=== PATIENT | female | born 1945 | race Caucasian/White ===

== ENCOUNTER 2016-07-15 08:39 | Day surgery (SDC) | payer MEDICARE, BC ==
[2005-01-06 18:56] VITALS: BP 150/89
[~2016-07-15] VITALS: Ht 162.7 cm; Wt 72.7 kg
[2016-07-15] VITALS (9 sets, daily range): BP systolic 121–162; BP diastolic 57–75; PULSE 47–58; TEMP 97.9
[~2016-07-15 08:39] MED LIST: ASPI325T6 PO; ASPIRIN 32325 MG/TAB PO; CARDI-OMEGA1000 MG PO; EPA1000 MG PO; FISH OIL 1000MG1 CAP PO; LEVAQUIN 5500 MG/TA1 PO; NEURONTIN600 MG/TAB PO; NORCO 325 MG-51 TAB PO; NORVASC 5MG5 MG/TAB PO; PHENERGAN W/CO120 M1 PO; PLAVIX 75MG TAB75 MG PO; PRAVACHOL80 MG PO; PRED FORTE 1 ML1 ML OU; PREDNISONE10 MG PO; PREDNISONE20 MG PO; PRILOSEC 20MG20 MG PO; REGLAN 10MG10 MG/TAB PO; VITAMIN D 1001000 IU PO; XANAX 1MG1 MG PO; ZEBETA 5MG5 MG PO; ZESTRIL30 MG PO; ZITHROMAX 250M250 MG PO
[2016-07-15 09:18] LABS: HEMATOCRIT 42.6 % (37.0-47.0); HEMOGLOBIN 13.9 g/dl (12.5-16.0); MEAN CELL VOLUME 93 fl (80.0-100.0); MEAN CORPUSCULAR HEMOGLOBIN 30 pg (27.0-31.0); MEAN CORPUSCULAR HGB CONC 33 g/dl (33.0-37.0); MEAN PLATELET VOLUME 9.3 fl (7.4-10.4); PLATELET COUNT 207 K/mm3 (130-400); RED BLOOD COUNT 4.57 M/mm3 (4.10-5.30); REDCELL DISTRIBUTION WIDTH-CV 13.4 % (11.5-14.5); WHITE BLOOD COUNT 3.8 K/mm3 (4.8-10.8)
[2016-07-15 09:30] LABS: CALCIUM 9.1 mg/dL (8.4-10.2); CREATININE, serum 0.85 mg/dL (0.52-1.25); POTASSIUM 4.3 mmol/L (3.4-5.0)
[2016-07-15 09:33] LABS: INR 1.1 (0.8-3.0); PROTHROMBIN TIME 11.7 SECONDS (9.7-12.8)
[2016-07-15] MEDS ORDERED: ZESTRIL30 MG PO (09:34)
[2016-07-15] MEDS ORDERED: PLAVIX 75MG TAB75 MG PO (09:34)
[2016-07-15] MEDS ORDERED: RANEXA 500MG T500 MG PO (15:18)
[2016-07-15] MEDS ORDERED: IMDUR 30MG30 MG/TAB PO (15:18)
[2016-07-15] MEDS ORDERED: ASPIRIN 81M81 MG/TA2 PO (15:19)
[2016-07-15] MEDS ORDERED: COZAAR100 MG PO (15:19)
[2016-07-15] MEDS ORDERED: PEPCID40 MG PO (15:20)
== END 2016-07-15 16:02 | disposition home or self-care (01) ==
LOC: COL.RAD 08:39
PROVIDERS: Internal Medicine Cardiovascular Disease
DX: I25.119 Atherosclerotic heart disease of native coronary artery with unspecified angina pectoris (principal); I10 Essential (primary) hypertension; E78.5 Hyperlipidemia, unspecified; G62.9 Polyneuropathy, unspecified; Z95.5 Presence of coronary angioplasty implant and graft
CPT/HCPCS: C1769; C1887; C1894; J1644; J2250; J3010; Q9967

== ENCOUNTER → 2017-07-21 | Outpatient (CLI) | payer MEDICARE, BC ==
[~2017-07-21] MED LIST changes: +ASPIRIN 81M81 MG/TA2 PO; +COZAAR100 MG PO; +IMDUR 30MG30 MG/TAB PO; +PEPCID40 MG PO; +RANEXA 500MG T500 MG PO
== END ==
LOC: COL.RAD 13:10
DX: M16.11 Unilateral primary osteoarthritis, right hip (principal)
CPT/HCPCS: J3301; Q9967

== ENCOUNTER → 2017-10-26 | Outpatient (CLI) | payer MEDICARE, BC ==
[2017-10-26 15:09] LABS: HIV 1/2 Antibodies Non-Reactive; HIV-1p24 Antigen Non-Reactive
== END ==
LOC: COL.LAB 13:58
PROVIDERS: Orthopaedic Surgery
DX: Z01.812 Encounter for preprocedural laboratory examination (principal); M16.11 Unilateral primary osteoarthritis, right hip

== ENCOUNTER → 2018-05-21 | Outpatient (CLI) | payer MEDICARE, BC | LOC: COL.RAD 07:51 | DX: J18.9 Pneumonia, unspecified organism (principal); K21.9 Gastro-esophageal reflux disease without esophagitis; K44.9 Diaphragmatic hernia without obstruction or gangrene | CPT/HCPCS: A9541 ==

== ENCOUNTER → 2019-01-21 | Outpatient (CLI) | payer MEDICARE, BC | LOC: COL.VAS 01-18 10:30 | DX: M79.89 Other specified soft tissue disorders (principal) ==

== ENCOUNTER → 2019-05-20 | Outpatient (CLI) | payer MEDICARE, BC | LOC: COL.RAD 10:30 | DX: M25.511 Pain in right shoulder (principal) | CPT/HCPCS: J3301; Q9967 ==

== ENCOUNTER → 2020-02-21 | Outpatient (CLI) | payer MEDICARE, BC | LOC: COL.RAD 10:02 | DX: M25.511 Pain in right shoulder (principal) | CPT/HCPCS: J3301; Q9967 ==

== ENCOUNTER 2020-05-28 09:44 | Day surgery (SDC) | payer MEDICARE, BC ==
[2005-01-06 18:56] VITALS: BP 150/89
[~2020-05-28] VITALS: Ht 162.6 cm; Wt 75.8 kg
[2020-05-28] VITALS (14 sets, daily range): BP systolic 92–188; BP diastolic 58–83; PULSE 55–65; TEMP 98.9
[~2020-05-28 09:44] MED LIST changes: -ASPIRIN 81M81 MG/TA2 PO; -CARDI-OMEGA1000 MG PO; +EPA FISH OIL1 SGL PO
[2020-05-28 10:35] LABS: HEMATOCRIT 45.8 % (37.0-47.0); HEMOGLOBIN 14.8 g/dl (12.5-16.0); MEAN CELL VOLUME 95 fl (80.0-100.0); MEAN CORPUSCULAR HEMOGLOBIN 31 pg (27.0-31.0); MEAN CORPUSCULAR HGB CONC 32 g/dl (33.0-37.0); MEAN PLATELET VOLUME 8.8 fl (7.4-10.4); PLATELET COUNT 238 K/mm3 (130-400)
[2020-05-28 10:40] LABS: PROTHROMBIN TIME 11.7 SECONDS (9.7-12.8)
[2020-05-28 10:43] LABS: PARTIAL THROMBOPLASTIN TIME 33.5 SECONDS (26.0-37.0)
[2020-05-28 10:47] LABS: CALCIUM 9.6 mg/dL (8.4-10.2); CREATININE, serum 0.84 (0.52-1.25); POTASSIUM 4.7 mmol/L (3.4-5.0)
--- NOTE | 2020-05-28 11:26 | NUR ---
SEE MERGE DOCUMENTATION FOR MEDICATION ADMINISTRATION TIMES AND INTRA/POST PROCEDURE SEDATION ASSESSMENTS. RIGHT HAND BARBEAU TEST POSITIVE.
[2020-05-28] MEDS ORDERED: ALDACTONE 25MG25 M1 PO (11:29)
[2020-05-28] MEDS ORDERED: CELEXA40 MG PO (11:30)
[2020-05-28] MEDS ORDERED: NITROSTAT0.4 MG/TAB SL (11:33)
[2020-05-28] MEDS ORDERED: XALATAN EYE DROPS OD (11:34)
[2020-05-28] MEDS ORDERED: GARLIC100 MG PO (11:35)
[2020-05-28] MEDS ORDERED: PHARMASSURE ZIN50 MG PO (11:35)
[2020-05-28] MEDS ORDERED: NATURAL E400 IU PO (11:36)
[2020-05-28] MEDS ORDERED: GLUCOSAMINE & C1 TAB PO (11:37)
[2020-05-28] MEDS ORDERED: PROBIOTIC ACID1 EAC3 PO (11:37)
--- NOTE | 2020-05-28 12:30 | NUR ---
pt is back to [facility] [employer]. bs report received from Elliott BARBA. pt is awake and alert, no distress at all. sinus michelle on monitor, rate 57, pt is pwd, resp reg andunlabored. TR band to rt wrist, cms intact distal. wctm. lunch ordered. call light in reach.
[2020-05-28] MEDS ORDERED: GNC L-ARGININE500 MG PO (12:58)
--- NOTE | 2020-05-28 16:30 | NUR ---
Discharge instructions given to pt.pt verbalizes understanding.INT removed,catheter tip itnact.Pt escorted out via wheelchair by this nurse.
== END 2020-05-28 17:44 | disposition home or self-care (01) ==
LOC: COL.CAR 09:44
PROVIDERS: Internal Medicine Cardiovascular Disease
DX: I25.110 Atherosclerotic heart disease of native coronary artery with unstable angina pectoris (principal); I48.0 Paroxysmal atrial fibrillation; R94.39 Abnormal result of other cardiovascular function study; I10 Essential (primary) hypertension; E78.5 Hyperlipidemia, unspecified; G47.33 Obstructive sleep apnea (adult) (pediatric); Z88.2 Allergy status to sulfonamides
CPT/HCPCS: J1644; J2250; J3010; Q9967

== ENCOUNTER 2022-04-12 09:56 | Day surgery (SDC) | payer MEDICARE, BC ==
[2022-04-12] VITALS (10 sets, daily range): BP systolic 120–169; BP diastolic 57–85; PULSE 58–90; TEMP 98
[~2022-04-12] VITALS: Ht 162.6 cm; Wt 70.4 kg
[~2022-04-12 09:56] MED LIST changes: +ALDACTONE 25MG25 M1 PO; +CELEXA40 MG PO; +GARLIC100 MG PO; +GLUCOSAMINE & C1 TAB PO; +GNC L-ARGININE500 MG PO; +NATURAL E400 IU PO; +NITROSTAT0.4 MG/TAB SL; +PHARMASSURE ZIN50 MG PO; +PROBIOTIC ACID1 EAC3 PO; +XALATAN EYE DROPS OD
[2022-04-12 10:43] LABS: BASO % 0.5 % (0.0-2.0); EOS # 0.1 K/mm3 (0.0-0.7); GRAN # 2.8 K/mm3 (1.4-6.5); GRAN % 63.7 % (42.2-75.2); HEMATOCRIT 47.9 % (37.0-47.0); HEMOGLOBIN 15.1 g/dl (12.5-16.0); LYMPH # 1.1 K/mm3 (1.2-3.4); LYMPH % 24.8 % (20.0-51.0); MEAN CELL VOLUME 97 fl (80.0-100.0); MEAN CORPUSCULAR HEMOGLOBIN 30 pg (27-31); MEAN CORPUSCULAR HGB CONC 32 g/dl (33.0-37.0); MEAN PLATELET VOLUME 8.8 fl (7.4-10.4); MONO # 0.4 K/mm3 (0.1-0.6); MONO % 8.8 % (1.7-9.3); PLATELET COUNT 251 K/mm3 (130-400); RED BLOOD COUNT 4.96 M/mm3 (4.10-5.30); REDCELL DISTRIBUTION WIDTH-CV 12.4 % (11.5-14.5)
[2022-04-12 11:02] LABS: ALBUMIN 4.1 gm/dL (3.4-4.8); BILIRUBIN,TOTAL 0.5 mg/dL (0.2-1.2); CALCIUM 9.7 mg/dL (8.4-10.2); CREATININE, serum 0.88 mg/dL (0.57-1.11); TOTAL PROTEIN 7.8 gm/dL (6.2-8.1)
[2022-04-12 11:08] LABS: TROPONIN-I 0.012 ng/mL (0.00-0.033)
--- NOTE | 2022-04-12 15:36 | NUR ---
See merge for all medication, assessment, intervention, and vital sign times.
--- NOTE | 2022-04-12 16:15 | NUR ---
ATTEMPTED TO DO PATIENT MED REC, PHYSICIAN CALLED HE NEEDED ME OUT FOR ACCESS, WILL RE ATTEMPT LATER.
--- NOTE | 2022-04-12 16:45 | NUR ---
ATTEMPTD TO GET IN CHART TO COMPLETE MED REC, COLOR STRAINING BAG WASHER STILL IN CHART AND PLANNING TO DISCHARGE PATIENT.
--- NOTE | 2022-04-12 18:21 | NUR ---
AGAIN ATTEMPTED TO DO MED REC FOR PATIENT. WOULD NOT LET ME MODIFY OR REMOVED MEDS THAT WERE INCCORECT. PER OLIVE KNOCKER SOURAV, IT IS DUE TO THE ENDLESS BED DRUM SANDER ALREADY "FINALIZING THE HOME MEDS," ENDLESS BED DRUM SANDER LIZBETH ALREADY PUT IN DSICHARGE NOTES. THIS RN INFORMED PATIENT WHEN SHE DISCHARGES TONIGHT SHE WILL NEED TO TAKE HER HOME MEDS SHE USALLY DOES, SINCE WE DID NOT ADMINISTER ANY HOME MEDICAITONS.
--- NOTE | 2022-04-12 18:22 | NUR ---
DISCHARGE INSTRUCITNS AND EDUCATION REVIEWED WITH PATIENT. POST HEART CATH HOME CARE INSTRUCITONS REVIEWED WITH PATIENT, PRESENT. WILL LEAVE IV AND TELE IN D/T PATIENT STILL NEEDING TR BAND REMOVAL.
== END 2022-04-12 20:01 | disposition home or self-care (01) ==
LOC: COL.ER 09:56 → MEDICAL 13:44 → SDCO 13:44
PROVIDERS: Emergency Medicine
DX: I25.110 Atherosclerotic heart disease of native coronary artery with unstable angina pectoris (principal); I25.82 Chronic total occlusion of coronary artery
CPT/HCPCS: OP; J1644; J2250; J3010; Q9967